=== PATIENT | male | born 1955 | race Caucasian/White ===

== ENCOUNTER 2024-05-14 08:21 | Emergency (ER) | payer MEDICARE ==
[~2024-05-14] VITALS: Ht 180.3 cm; Wt 126.0 kg
[2024-05-14] MEDS ORDERED: PRAVASTATIN SOD10 MG (09:20)
[2024-05-14] MEDS ORDERED: GLIM2 (09:20)
[2024-05-14] MEDS ORDERED: METF500 (09:20)
[2024-05-14] MEDS ORDERED: Aspir 8181 MG (09:20)
[2024-05-14] MEDS ORDERED: Diovan320 MG (09:20)
== END 2024-05-14 09:45 | disposition home or self-care (01) ==
LOC: ER 08:21
DX: L60.2 Onychogryphosis (principal); M21.611 Bunion of right foot; E11.9 Type 2 diabetes mellitus without complications; I10 Essential (primary) hypertension; E78.5 Hyperlipidemia, unspecified
CPT/HCPCS: 82947; 99283